=== PATIENT | female | born 2000 | race Two or more races ===

== ENCOUNTER 2024-12-09 09:32 | Emergency (ER) | payer OTHER ==
[~2024-12-09] VITALS: Ht 160 cm; Wt 72.6 kg
[2024-12-09] MEDS ORDERED: DEXAMETHASONE 4 MG TABLET PO ONE (10:00)
[2024-12-09] MEDS ORDERED: DIPHENHYDRAMINE HCL 50 MG/ML VIAL 1ML IV ONE (10:00)
[2024-12-09 10:15] LABS: BASO % 0.8 % (0.1-1.2); EOS % 2.8 % (0.7-7.0); HEMOGLOBIN 13.3 g/dL (11.2-15.7); LYMPH # 1.45 (1.18-3.74); MEAN CORPUSCULAR HEMOGLOBIN 27.4 pg (25.6-32.2); MONO # 0.29 (0.24-0.82); MONO % 8.2 % (4.7-12.5); NEUT # 1.66 (1.56-6.13); NEUT % 46.9 % (34.0-71.1); RED BLOOD COUNT 4.85 M/uL (3.93-5.22); RED CELL DISTRIBUTION WIDTH 12.8 % (11.6-14.4)
[2024-12-09 10:16] LABS: PLATELET COUNT 116 K/uL (163-369)
[2024-12-09] MEDS ORDERED: 0.9 % SODIUM CHLORIDE 500 ML IV ONE (10:45)
== END 2024-12-09 13:26 | disposition home or self-care (01) ==
LOC: ER 09:38
PROVIDERS: General Practice
DX: L50.2 Urticaria due to cold and heat (principal); Z91.013 Allergy to seafood; D69.6 Thrombocytopenia, unspecified